=== PATIENT | female | born 1970 | race Caucasian/White ===

== ENCOUNTER 2019-03-21 15:21 | Emergency (ER) | payer BC ==
[~2019-03-21] VITALS: Ht 170.2 cm; Wt 67.3 kg
[2019-03-21] MEDS ORDERED: ZOFRAN ODT4 MG PO (16:13)
[2019-03-21 17:50] VITALS: BP 128/91; PULSE 112; TEMP 97.9
== END 2019-03-21 17:50 | disposition home or self-care (01) ==
LOC: COL.ER 15:21
DX: R11.2 Nausea with vomiting, unspecified (principal); R19.7 Diarrhea, unspecified
CPT/HCPCS: J2405; J7030

== ENCOUNTER → 2020-12-04 | Outpatient (CLI) | payer BC ==
[~2020-12-04] MED LIST: ZOFRAN ODT4 MG PO
== END ==
LOC: MC.RAD 07:12
DX: Z12.31 Encounter for screening mammogram for malignant neoplasm of breast (principal)

== ENCOUNTER → 2024-04-26 | Outpatient (CLI) | payer OTHER | LOC: MC.RAD 10:18 | DX: Z12.31 Encounter for screening mammogram for malignant neoplasm of breast (principal) ==